=== PATIENT | female | born 1965 | race Caucasian/White ===

== ENCOUNTER → 2025-08-15 09:45 | Outpatient (REF) | payer OTHER, SELFPAY ==
--- NOTE | 2025-08-18 08:22 | OID.BR.INTR ---
[facility] Breast Navigator - Initial
- -
Did not meet patient at time of biopsy. Will follow up per protocol.
== END ==
LOC: WDC 09:45
PROVIDERS: ATTENDING PHYSICIAN Surgery
DX: N63.21 Unspecified lump in the left breast, upper outer quadrant (principal); R92.8 Other abnormal and inconclusive findings on diagnostic imaging of breast
CPT/HCPCS: 19083; 88305; A4648

== ENCOUNTER → 2025-10-02 07:35 | Outpatient (REF) | payer OTHER, SELFPAY | LOC: WDC 07:35 | PROVIDERS: ATTENDING PHYSICIAN Surgery | DX: C50.412 Malignant neoplasm of upper-outer quadrant of left female breast (principal) | CPT/HCPCS: 19285 ==

== ENCOUNTER 2025-10-03 06:06 | Day surgery (SDC) | payer OTHER, SELFPAY ==
[2025-09-17 11:10] LABS: Hematocrit 42.7 % (37.0-47.0); Hemoglobin 14.5 g/dL (12.0-16.0); Mean Corp Hgb Conc. 34.0 g/dL (33.0-37.0); Mean Corpuscular Volume 89.1 fL (81.0-99.0); Platelet Count 285 10^3/uL (130-400); Red Cell Dist. Width 12.4 % (11.5-14.5)
[2025-09-17 11:34] LABS: ALT (SGPT) 33 U/L (0-35); AST (SGOT) 29 U/L (14-36); Albumin 4.6 g/dl (3.5-5.0); Alkaline Phosphatase 78 U/L (38-126); Blood Urea Nitrogen 11 mg/dl (7-17); Calcium 9.2 mg/dl (8.4-10.2); Carbon Dioxide 28 mmol/L (22-30); Chloride 104 mmol/L (98-107); Glucose 165 mg/dl (70-99); Potassium 4.3 mmol/L (3.5-5.1); Sodium 138 mmol/L (135-145); Total Protein 7.9 g/dl (6.3-8.2); eGFR > 60.00
[2025-09-17 11:40] LABS: Prealbumin (Transthyretin) 23.4 mg/dl (17.6-36.0)
[2025-09-17 11:54] LABS: Vitamin D, 25-OH*** 37.6 ng/mL (30-80)
[2025-09-17 14:12] VITALS: BMI 36.6
[2025-10-03] VITALS (9 sets, daily range): BP systolic 129–159; BP diastolic 80–107; BMI 36.6
[2025-10-03] MEDS: LOVENOX 40 MG SC (07:00)
[2025-10-03] MEDS: TYLENOL 1000 MG PO (07:00)
[2025-10-03 07:03] LABS: Glucose - Point of Care 160 mg/dl (70-99)
[2025-10-03] MEDS: NORMOSOL-R/PLASMALYTE-A 1000 IV (07:08)
--- NOTE | 2025-10-03 07:09 | W.SUR.PREOP ---
Pre-Operative Surgical Note
-
I have examined this patient prior to the performance of the scheduled procedure.
The patient's condition is unchanged from the time of the current History and
Physical and the patient is able to undergo the scheduled procedure. I asked anesthesia
to review the patient's EKG and Dr. Nelson felt everything was fine.
[2025-10-03 09:01] LABS: Glucose - Point of Care 161 mg/dl (70-99)
--- NOTE | 2025-10-03 09:08 | W.IMMPOSTOP ---
Surgical Immed Post Op Note
-
Primary Surgeon: Luis Manuel
Assisting Surgeon: None
Pre-op Diagnosis: Left breast ca
Post-op Diagnosis: Same
Procedure Performed: Left localized lumpectomy
Anesthesia Type: TIVA
Specimen / Cultures: Left lumpectomy and margins
Estimated Blood Loss: 2cc
Complications: None
Operative Findings: Clip and reflector in speciment
--- NOTE | 2025-10-03 09:09 | OR.RPT ---
Operative Report
Operative Report
Date of procedure: 10/03/2025
Surgeon: Luis Manuel
Preoperative diagnosis: Left breast carcinoma
Postoperative diagnosis: Left breast carcinoma
Procedure: Left localized lumpectomy
Patient is a 59-year-old female who had favorable early-stage breast carcinoma diagnosed on routine imaging. She qualified for breast surgery with illumination of surgical staging for the INSEMA and SOUND trials and after discussing axillary
recurrence and survival rates, she consented and presents for left localized lumpectomies. On the day prior to the procedure the patient presented to the [facility] where a Cinthya reflector was placed at the tumor site. On the day of the
procedure she presented to the same-day surgical services unit. She was prepped. She verified site and procedure. DVT and antibiotic prophylaxis were provided. She was transferred to the operating room and in the supine position intravenous
sedation was delivered.
The left breast was prepped and draped in the usual sterile fashion. All team members performed an appropriate timeout procedure. All tissues were anesthetized with 1% lidocaine plain. A curvilinear incision was made overlying the area of highest
Cinthya signal. Skin flaps were elevated with the cautery and dissection was carried down to the mass. Wide lumpectomy was performed using the cautery. Time out of body was noted and the specimen was oriented for the pathologist. Specimen
radiography confirmed the presence of the clip and reflector within it. Additional margins were harvested from the posterior, medial, superior, lateral, inferior, and anterior dimensions and sent for permanent analysis. These were oriented as well.
Hemostasis was maintained with the cautery. Hemoclips were placed in the resection cavity and Marcaine 0.5% plain was instilled. The wound was closed in multiple layers using simple interrupted a 3-0 Vicryl Covidien equivalent. Skin was closed
using running simple interrupted 3-0 Vicryl Covidien equivalent and the skin was run with a running subcuticular 4 Monocryl. A few external Monocryl's were placed for extra support. Surgical glue and a sterile compressive dressing were applied.
All sponge needle and instrument counts were correct and the patient was transferred to same-day surgical services for recovery.
([id number])
== END 2025-10-03 10:47 | disposition home or self-care (01) ==
LOC: SDS 06:06
PROVIDERS: ATTENDING PHYSICIAN Surgery; FAMILY PHYSICIAN Internal Medicine
DX: C50.912 Malignant neoplasm of unspecified site of left female breast (principal)
CPT/HCPCS: 19301; 36415; 76098; 80053; 82306; 82962; 84134; 85027; 88305; 88307; 88341; 88342; 93005; A4648